=== PATIENT | female | born 1960 | race Caucasian/White ===

== ENCOUNTER 2017-04-27 09:30 | Day surgery (SDC) | payer BC ==
[~2017-04-27 09:30] MED LIST: Lactated Ringers 1,000 ML IV SCH; Sodium Chloride 0.9% 10 ML Syringe FLUSH PRN
[2017-04-27] MEDS ORDERED: fentaNYL 100 MCG/2 ML SDV ONE ×2 (10:33→10:45)
[2017-04-27] MEDS ORDERED: Propofol 200 MG/20 ML SDV ONE ×2 (10:34→10:45)
[2017-04-27] MEDS ORDERED: Midazolam 1 MG/ML 2 ML SDV ONE ×2 (10:34→10:45)
--- NOTE | 2017-04-27 10:43 | PCM.PN ---
- General Info Date of Service: 04/27/17 - Review of Systems Systems Review Comment:: 57-year-old female referred for colonoscopy. She has a family history of colon cancer in 2 siblings. The patient has noticed some unexplained abdominal pain and is been several years since her last colonoscopy. I discussed the proposed colonoscopy with the patient. I reviewed with her the indications and risks such as but not limited to bleeding and GI injury. She appears to understand and agrees to proceed. Her recent history and physical is reviewed and there is no significant change today compared to that exam. - Patient Data Vitals - most recent: Last Vital Signs Temp 98.4 F 04/27/17 10:12 Pulse 69 04/27/17 10:12 Resp 16 04/27/17 10:12 BP 110/80 04/27/17 10:12 Pulse Ox 97 04/27/17 10:12 Weight - most recent: 81.647 kg Med Orders - Current: Current Medications Lactated Ringer's (Ringers, Lactated) 1,000 mls @ 125 mls/hr IV ASDIRECTED RADHIKA Sodium Chloride (Saline Flush) 10 ml FLUSH ASDIRECTED PRN PRN Reason: Keep Vein Open Discontinued Medications Fentanyl (Sublimaze) Confirm Administered Dose 100 mcg .ROUTE .STK-MED ONE Stop: 04/27/17 10:34 Midazolam HCl (Versed 1 Mg/Ml) Confirm Administered Dose 2 mg .ROUTE .STK-MED ONE Stop: 04/27/17 10:35 Propofol (Diprivan 20 Ml) Confirm Administered Dose 200 mg .ROUTE .STK-MED ONE Stop: 04/27/17 10:35 - Problem List Review Problem List Initiated/Reviewed/Updated: Yes - My Orders Last 24 Hours: My Active Orders 04/27/17 09:30 Patient Status [ADT] Routine Peripheral IV Care [RC] . DIRECTED Verify Patient Consent Obtain [RC] ASDIRECTED Lactated Ringers [Ringers, Lactated] 1,000 ml IV ASDIRECTED Sodium Chloride 0.9% [Saline Flush] 10 ml FLUSH ASDIRECTED PRN Peripheral IV Insertion Adult [OM.PC] Routine - Assessment Assessment:: Family History of Colon Cancer - Plan Plan:: Colonoscopy
--- NOTE | 2017-04-27 11:23 | PCM.OPNOTE ---
- General Post-Op/Procedure Note Date of Surgery/Procedure: 04/27/17 Operative Procedure(s): Colonoscopy Findings: Normal Colon Pre Op Diagnosis: Family History of Colon Cancer Post-Op Diagnosis: Same Anesthesia Technique: MAC Primary Surgeon: Eric Song Pathology: none Output, Urine Amount: 0 EBL in mLs: 0 Complications: None Condition: Good Free Text/Narrative:: Intake & Output 04/26/17 04/27/17 04/27/17 22:59 06:59 14:59 Intake Total 600 Balance 600
--- NOTE | 2017-04-27 12:03 | OR ---
Date of Procedure: 04/27/2017 PREOPERATIVE DIAGNOSIS: Family history of colon cancer. POSTOPERATIVE DIAGNOSIS: Normal colon. OPERATION PERFORMED: Colonoscopy. INDICATIONS FOR SURGERY: This 57-year-old female has a known family history of colon cancer in siblings. She has noticed some unexplained abdominal pain and comes for colonoscopy. FINDINGS: The patient's colon appears normal. No visible signs of inflammation or polyps are seen. PROCEDURE: The patient was taken to the operating room. She was given intravenous sedation and with her in the left lateral decubitus position, digital rectal exam was performed showing no rectal masses. The Olympus colonoscope was inserted into the rectum. Retroflexed examination of the rectal canal was performed. The scope was then carefully advanced under direct visualization through the entire length of the colon until the cecum was reached. Cecal acquisition was confirmed by noting the normal internal cecal anatomy including the appendiceal orifice and ileocecal valve. After examining the cecum, the scope was slowly withdrawn sequentially re-examining the colonic segments until the entire colon and rectum had been fully examined. The scope was removed and the patient was taken from the operating room in satisfactory condition. ESTIMATED BLOOD LOSS: Zero. COMPLICATIONS: None. PROGNOSIS: Good. ADRIENNE Song MD /[id number]
[2017-04-27 13:46] VITALS: BP 109/80
== END 2017-04-27 12:15 | disposition home or self-care (01) ==
LOC: LL.SDS 09:30
PROVIDERS: ATTEND Surgery
DX: Z12.11 Encounter for screening for malignant neoplasm of colon (principal); Z80.0 Family history of malignant neoplasm of digestive organs; E78.5 Hyperlipidemia, unspecified; Z88.1 Allergy status to other antibiotic agents
CPT/HCPCS: 45378; J2250; J2704; J3010; J7120

== ENCOUNTER 2022-01-13 10:21 | Day surgery (SDC) | payer BC ==
[~2022-01-13 10:21] MED LIST changes: -Lactated Ringers 1,000 ML IV SCH; +Midazolam 1 MG/ML 2 ML SDV ONE; +Propofol 200 MG/20 ML SDV ONE; -Sodium Chloride 0.9% 10 ML Syringe FLUSH PRN
[2022-01-13] MEDS ORDERED: Sodium Chloride 0.9% 10 ML Syringe FLUSH PRN (10:45)
[2022-01-13] MEDS: Lactated Ringers 1,000 ML IV SCH (11:25)
[2022-01-13] MEDS ORDERED: Midazolam 1 MG/ML 2 ML SDV ONE (12:10)
[2022-01-13] MEDS ORDERED: Propofol 200 MG/20 ML SDV ONE (12:10)
[2022-01-13 13:08] VITALS: BP 138/86; PULSE 62
== END 2022-01-13 13:35 | disposition home or self-care (01) ==
LOC: LL.SDS 10:21
PROVIDERS: ATTEND Surgery
DX: Z12.11 Encounter for screening for malignant neoplasm of colon (principal); K57.30 Diverticulosis of large intestine without perforation or abscess without bleeding; F32.A Depression, unspecified; E78.5 Hyperlipidemia, unspecified; N32.81 Overactive bladder; E66.9 Obesity, unspecified; G43.909 Migraine, unspecified, not intractable, without status migrainosus; F41.9 Anxiety disorder, unspecified; Z79.899 Other long term (current) drug therapy; Z88.1 Allergy status to other antibiotic agents; Z80.0 Family history of malignant neoplasm of digestive organs
CPT/HCPCS: 00812; J2250; J2704; J7120

== ENCOUNTER 2023-05-25 11:32 | Day surgery (SDC) | payer BC ==
[~2023-05-25 11:32] MED LIST changes: -Midazolam 1 MG/ML 2 ML SDV ONE
[2023-05-25] MEDS ORDERED: Lactated Ringers 1,000 ML IV SCH (11:45)
[2023-05-25] MEDS ORDERED: Sodium Chloride 0.9% 10 ML Syringe FLUSH PRN (11:45)
[2023-05-25] MEDS ORDERED: Propofol 200 MG/20 ML SDV ONE (13:15)
[2023-05-25 14:04] VITALS: BP 98/62; PULSE 73
== END 2023-05-25 14:22 | disposition home or self-care (01) ==
LOC: LL.SDS 11:32
PROVIDERS: ATTEND Surgery
DX: Z12.11 Encounter for screening for malignant neoplasm of colon (principal); E11.9 Type 2 diabetes mellitus without complications; E66.9 Obesity, unspecified; E78.00 Pure hypercholesterolemia, unspecified; F41.9 Anxiety disorder, unspecified; F32.A Depression, unspecified; G43.909 Migraine, unspecified, not intractable, without status migrainosus; R73.03 Prediabetes; Z80.0 Family history of malignant neoplasm of digestive organs; Z79.899 Other long term (current) drug therapy; Z88.1 Allergy status to other antibiotic agents; Z79.84 Long term (current) use of oral hypoglycemic drugs; Z86.16 Personal history of COVID-19; Z68.30 Body mass index [BMI] 30.0-30.9, adult
CPT/HCPCS: 00812; J2704; J7120

== ENCOUNTER 2024-09-27 08:41 | Emergency (ER) | payer BC ==
[2024-09-27] MEDS: Sodium Chloride 0.9% 1,000 ML IV SCH (08:57)
[2024-09-27 09:01] LABS: BASOPHILS ABSOLUTE AUTO 0.06 K/uL (0.00-0.20); BASOPHILS PERCENT AUTO 0.8 % (0.0-2.0); EOSINOPHILS ABSOLUTE AUTO 0.12 K/uL (0.00-0.50); EOSINOPHILS PERCENT AUTO 1.5 % (0.0-5.0); HEMATOCRIT 39.3 % (34.0-46.0); HEMOGLOBIN 13.1 g/dL (11.7-15.5); IMMATURE GRAN ABSOLUTE AUTO 0.01 10^3/uL (0.00-0.50); IMMATURE GRAN PERCENT AUTO 0.1 % (0.0-5.0); LYMPHOCYTES ABSOLUTE AUTO 2.09 K/uL (0.50-3.50); LYMPHOCYTES PERCENT AUTO 26.2 % (10.0-50.0); MEAN CORPUSCULAR HEMOGLOBIN 27.6 pg (28.2-33.3); MEAN CORPUSCULAR HGB CONC 33.3 g/dL (31.7-36.0); MEAN CORPUSCULAR VOLUME 82.9 fL (84.0-98.0); MONOCYTES ABSOLUTE AUTO 0.58 K/uL (0.00-1.00); MONOCYTES PERCENT AUTO 7.3 % (2.0-14.0); NEUTROPHILS ABSOLUTE AUTO 5.11 K/uL (1.40-7.00); NEUTROPHILS PERCENT AUTO 64.1 % (45.0-80.0); PLATELET COUNT,PLT 290 K/uL (150-350); RED BLOOD CELL COUNT 4.74 M/uL (3.77-5.09)
[2024-09-27] MEDS: Lidocaine 2% Viscous Solution 15 ML UD PO ONE (09:04)
[2024-09-27] MEDS: Aluminum Hydroxide/Magnesium Hydroxide/Simethicone Susp 30 ML Cup PO ONE (09:04)
[2024-09-27] MEDS: Ondansetron 4 MG/2 ML SDV IVPUSH ONE (09:22)
[2024-09-27] MEDS: Morphine 2 MG/ML SYRINGE IVPUSH ONE (09:23)
[2024-09-27] MEDS: Pantoprazole 40 MG Vial IVPUSH ONE (09:23)
[2024-09-27 09:25] LABS: ALANINE AMINOTRANSFERASE,ALT 78 U/L (12-78); ALBUMIN 4.2 g/dL (3.4-5.0); ALKALINE PHOSPHATASE 94 IU/L (46-116); ANION GAP 21.2 meq/L (7-15); ASPARTATE AMNIOTRANSFERASE,AST 96 U/L (15-37); BLOOD UREA NITROGEN,BUN 22 mg/dL (7-18); CALCIUM 9.9 mg/dL (8.5-10.1); CARBON DIOXIDE,CO2 20.4 mmol/L (21.0-32.0); CHLORIDE,CL 103 mmol/L (98-107); CREATININE 1.02 mg/dL (0.51-1.17); EST CRCL DRUG DOSING (CG) 48.12 mL/min; ESTIMATED GFR 61 mL/min (>=60); GLUCOSE RANDOM 161 mg/dL (70-99); POTASSIUM,K 3.6 mmol/L (3.5-5.1); PROTEIN TOTAL,TP 7.7 g/dL (6.4-8.2); SODIUM,NA 141 mmol/L (136-145)
[2024-09-27 09:26] LABS: AMYLASE 35 U/L (25-115); LIPASE 99 U/L (16-77)
[2024-09-27] MEDS ORDERED: Iopamidol 612 MG/ML 100 ML Bottle IVPUSH ONE (09:35)
[2024-09-27] MEDS ORDERED: Iopamidol 612 MG/ML 100 ML Bottle ONE (09:45)
[2024-09-27 09:49] LABS: PTT,PARTIAL THROMBOPLSTIN TIME 22.1 SEC (23.6-29.8)
[2024-09-27 10:57] VITALS: BP 108/72; PULSE 82
== END 2024-09-27 11:50 ==
LOC: LL.ED 08:41
DX: K81.0 Acute cholecystitis (principal); E11.9 Type 2 diabetes mellitus without complications; E66.9 Obesity, unspecified; Z68.26 Body mass index [BMI] 26.0-26.9, adult; Z79.899 Other long term (current) drug therapy; Z88.1 Allergy status to other antibiotic agents
CPT/HCPCS: 36415; 71045; 71260; 74019; 74177; 80053; 82150; 83605; 83690; 83735; 84484; 85025; 85379; 85610; 85730; 93005; 96361; 96374; 96375; 99285-25; A9270-GY; J2270; J2405; J2470; J7030; Q9967